=== PATIENT | male | born 1955 | race Caucasian/White ===

== ENCOUNTER → 2018-01-31 | Outpatient (CLI) | payer OTHER | END | disposition home or self-care (01) | LOC: CFH 15:56 | PROVIDERS: ATTEND Nurse Practitioner Family | DX: I65.23 Occlusion and stenosis of bilateral carotid arteries (principal) | CPT/HCPCS: 93880 ==

== ENCOUNTER → 2018-02-07 | Outpatient (CLI) | payer OTHER | END | disposition home or self-care (01) | LOC: CFH 14:50 | PROVIDERS: ATTEND Nurse Practitioner Family | DX: R22.2 Localized swelling, mass and lump, trunk (principal); I25.10 Atherosclerotic heart disease of native coronary artery without angina pectoris; K80.20 Calculus of gallbladder without cholecystitis without obstruction | CPT/HCPCS: 71250 ==

== ENCOUNTER → 2018-05-10 | Outpatient (CLI) | payer OTHER | END | disposition home or self-care (01) | LOC: CFH 13:11 | PROVIDERS: ATTEND Internal Medicine Cardiovascular Disease | DX: I35.8 Other nonrheumatic aortic valve disorders (principal); I10 Essential (primary) hypertension; E78.5 Hyperlipidemia, unspecified | CPT/HCPCS: 93306 ==

== ENCOUNTER 2019-09-17 08:24 | Emergency (ER) | payer OTHER ==
[~2019-09-17] VITALS: Ht 182.9 cm; Wt 94.6 kg
--- NOTE | 2019-09-17 09:06 | NUR ---
FIRST CONTACT WITH PT. PT WAS SEEN BY DANYELL MENA X 2 WEEKS AGO FOR BLOODY STOOL. PT. WAS TREATED WITH ABX FOR DIVERTICULITIS. PT. HAD AN INCIDENTAL FINDING ON A CHEST XRAY WITH A MASS PRESENT IN HIS RIGHT LUNG. PT. IS HERE TODAY FOR EVALUATION OF CONTINUED ABD. PAIN NO LONGER HAVING BLOODY STOOLS. FORMERLY HAVING DARK STOOLS. PT. DENIES SOB,FEVER AND COUGH. PT'S AOX4. RESPS EVEN AND UNLABORED. BP/SPO2 MONITORS IN PLACE. CALL LIGHT WITHIN REACH. PA AT BEDSIDE TO EVALUATE AT THIS TIME.
--- NOTE | 2019-09-17 09:09 | NUR ---
PT AMB TO BR WITH STEADY GAIT. URINE CUP GIVEN.
--- NOTE | 2019-09-17 09:26 | NUR ---
PIV EST ON L AC WITH NO COMPLICATIONS. PT TOLERATED WELL.
[2019-09-17] MEDS ORDERED: SODIUM CHLORIDE FLUSH 10ML SYR IVF ONE (09:30)
[2019-09-17 09:40] LABS: MICROSCOPIC NOT IND
[2019-09-17 09:42] LABS: BASOPHILS # (AUTO) 0.03 x10^3/uL (0-0.1); BASOPHILS % (AUTO) 0 % (0-1); EOSINOPHILS # (AUTO) 0.25 x10^3/uL (0-0.4); EOSINOPHILS % (AUTO) 3 % (1-7); LYMPHOCYTES # (AUTO) 1.01 x10^3/uL (1-3.4); LYMPHOCYTES % (AUTO) 13 % (22-44); MD NO; MEAN CORPUSCULAR HEMOGLOBIN 32.4 pg (27.5-34.5); MEAN CORPUSCULAR HGB CONC 33.7 g/dL (33.2-36.2); MEAN CORPUSCULAR VOLUME 96.1 fL (81-97); MEAN PLATELET VOLUME 6.9 fL (7.4-10.4); MONOCYTES # (AUTO) 0.88 x10^3/uL (0.2-0.8); MONOCYTES % (AUTO) 11 % (2-9); NEUTROPHILS # (AUTO) 5.87 x10^3/uL (1.8-6.8); NEUTROPHILS % (AUTO) 73 % (42-75); PLATELET COUNT 314 x10^3/uL (130-400); RED BLOOD COUNT 4.65 x10^6/uL (4.38-5.82); RED CELL DISTRIBUTION WIDTH 13.5 % (9.4-14.8)
[2019-09-17 09:50] LABS: ALANINE AMINOTRANSFERASE 128 U/L (12-78); ALBUMIN 3.6 g/dL (3.4-5.0); ANION GAP 8 mmol/L (5-15); CALCIUM 8.9 mg/dL (8.5-10.1); CHLORIDE 104 mmol/L (98-107); CREATININE 0.79 mg/dL (0.7-1.3)
[2019-09-17 09:52] LABS: ALKALINE PHOSPHATASE 81 U/L (45-117); BILIRUBIN,TOTAL 0.7 mg/dL (0.2-1.0); TOTAL PROTEIN 7.1 g/dL (6.4-8.2)
[2019-09-17 09:54] LABS: CULTURE INDICATED? NO
--- NOTE | 2019-09-17 10:11 | NUR ---
PT TO CT AT THIS TIME.
--- NOTE | 2019-09-17 10:22 | NUR ---
PT BACK TO ROOM FROM CT AT THIS TIME.
[2019-09-17] MEDS ORDERED: OMNIPAQUE 350 MG/ML, 100ML BOTTLE ONE (10:32)
[2019-09-17 11:37] VITALS: BP 122/75
--- NOTE | 2019-09-17 11:38 | NUR ---
Patient given discharge instructions and they have confirmed that they understand the instructions. Patient ambulatory with steady gait.
== END 2019-09-17 11:39 | disposition home or self-care (01) ==
LOC: ED 09:14
DX: R10.32 Left lower quadrant pain (principal)
CPT/HCPCS: 36415; 71260; 74177; 80053; 81003; 83690; 85025; 99285; Q9967